=== PATIENT | female | born 1995 | race Caucasian/White ===

== ENCOUNTER → 2022-12-08 | Outpatient (CLI) | payer BC, OTHER ==
[~2022-12-08] MED LIST: CATHETER FLUSH 10 ML SYR IV PRN; HOLD METFORMIN - RECEIVED CONTRAST 20 ML VIAL IV SCH; IOHEXOL 350 MG/ML 100 ML (OMNIPAQUE 350) VIAL IV ONE; NS 100 ML (IVPB) BAG IV ONE
--- NOTE | 2022-12-08 15:46 | Diagnostic Imaging Report ---
PROCEDURE: CT abdomen and pelvis with contrast. TECHNIQUE: Multiple contiguous axial images were obtained through the abdomen and pelvis after administration of intravenous contrast. Auto Exposure Controls were utilized during the CT exam to meet ALARA standards for radiation dose reduction. All CT scans use one or more of the following dose optimizing techniques: automated exposure control, MA and/or KvP adjustment based on patient size and exam type or iterative reconstruction. INDICATION: Left lower quadrant abdominal pain. COMPARISON: No prior studies are available for comparison. FINDINGS: The lung bases are clear. There is an approximately 3 cm low-attenuation mass in the left lobe of the liver which appears solid. No other liver masses are seen. The gallbladder is contracted. There is no biliary ductal dilatation. Pancreas and spleen are unremarkable. No adrenal mass is identified. Kidneys are unremarkable. There is no hydronephrosis. Aorta is nonaneurysmal. Small and large bowel loops are normal in caliber. There is no obstruction. Appendix is unremarkable. Bladder is unremarkable. Uterus is unremarkable. There is a large cyst in the left adnexa measuring 4.7 cm. There is moderate free fluid in the pelvis as well. No other significant abnormality is detected. IMPRESSION: 1. 3 cm liver mass. Correlation with liver ultrasound and/or liver MRI would be recommended for better characterization. 2. Left adnexal cyst, likely ovarian. There is some free fluid in the pelvis, consistent with recent rupture. Pelvic sonography may be useful for further characterization. Dictated by: Dictated on workstation # [id number]
== END ==
LOC: GIR 14:52
PROVIDERS: ATTEND Registered Nurse Emergency
DX: R16.0 Hepatomegaly, not elsewhere classified (principal); N83.8 Other noninflammatory disorders of ovary, fallopian tube and broad ligament
CPT/HCPCS: 74177